=== PATIENT | male | born 1990 | race Native Hawaiian/Other Pacific Islander ===

== ENCOUNTER → 2021-06-18 | Outpatient (CLI) | payer OTHER ==
--- NOTE | 2021-06-18 13:55 | XR ---
EXAMINATION TYPE: XR lumbar spine 2 or 3V DATE OF EXAM: 06/18/2021 COMPARISON: None HISTORY: Low back pain TECHNIQUE: 3 view lumbar spine FINDINGS: Posterior disc space narrowing is present at L5-S1. Remaining disc heights are preserved. V ertebral body heights are preserved. Alignment is normal. IMPRESSION: 1. Posterior disc space narrowing L5-S1
== END | disposition home or self-care (01) ==
LOC: RADXRMAIN 12:03
PROVIDERS: ATTEND Emergency Medicine
DX: M51.36 Other intervertebral disc degeneration, lumbar region (principal)
CPT/HCPCS: 72100

== ENCOUNTER → 2021-06-20 | Outpatient (CLI) | payer OTHER ==
--- NOTE | 2021-06-20 15:13 | XR ---
EXAMINATION TYPE: XR chest 2V DATE OF EXAM: 06/20/2021 COMPARISON: None INDICATION: Fall, pain TECHNIQUE: Single frontal view of the chest is obtained. FINDINGS: The heart size is normal. The pulmonary vasculature is normal. The lungs are clear. No pneumothorax is evident. No displaced rib fractures are evident. IMPRESSION: 1. No acute pulmonary process.
--- NOTE | 2021-06-20 15:30 | XR ---
EXAMINATION TYPE: XR ribs LT DATE OF EXAM: 06/20/2021 COMPARISON: None HISTORY: Fall, pain TECHNIQUE: 2 view right ribs FINDINGS: No acute fractures are evident. No pneumothorax is evident. Nuclear medicine bone scan can be performed if additional evaluation is required. IMPRESSION: 1. No acute fracture evident.
--- NOTE | 2021-06-20 15:32 | XR ---
EXAMINATION TYPE: XR thoracic spine complete DATE OF EXAM: 06/20/2021 COMPARISON: None HISTORY: Fall pain TECHNIQUE: 3 view thoracic spine FINDINGS: There are 12 thoracic type vertebral bodies. Pedicles are intact. Disc heights are preserve d. Vertebral body heights are preserved. Some subtle scoliosis within the midthoracic spine. This can be positional or related to muscle spasm. Vertebral body alignment in the sagittal plane appears nor mal. IMPRESSION: 1. Minimal subtle scoliosis can be related to muscle spasm or patient positioning.
== END | disposition home or self-care (01) ==
LOC: RADXRMAIN 14:14
PROVIDERS: ATTEND Emergency Medicine
DX: S29.012D Strain of muscle and tendon of back wall of thorax, subsequent encounter (principal); M62.838 Other muscle spasm; M41.84 Other forms of scoliosis, thoracic region; W19.XXXD Unspecified fall, subsequent encounter
CPT/HCPCS: 71046; 72072

== ENCOUNTER → 2023-09-03 | Outpatient (CLI) | payer SELFPAY ==
--- NOTE | 2023-09-03 15:00 | US ---
EXAMINATION TYPE: US pelvic limited DATE OF EXAM: 09/03/2023 COMPARISON: NONE CLINICAL INDICATION: Male, 32 years old with history of N50.811 RT TESTICULAR PAIN,R10.2; Pelvic pain . blood in ejaculation TECHNIQUE: FINDINGS: bladder appears unremarkable. prostate appears slightly prominent = 4.2cm. hypoechoic area adjacent to prostate ?etiology IMPRESSION: 1. Bladder demonstrates no abnormality. Prostate is enlarged. There is a small hypoechoic area adjace nt to the prostate of uncertain etiology. Would recommend follow-up pelvic ultrasound.
--- NOTE | 2023-09-03 15:08 | US ---
EXAMINATION TYPE: US scrotum with doppler. Grayscale and color Doppler Duplex imaging performed of t erik scrotum. DATE OF EXAM: 09/03/2023 COMPARISON: NONE CLINICAL INDICATION: Male, 32 years old with history of N50.811 RT TESTICULAR PAIN,R10.2 PELVIC AND P ERINEAL PAIN; Testicle pain. Blood in ejaculation EXAM MEASUREMENTS: TESTICLES: Right Testicle: 5.1 x 2.1 x 3.7 cm Left Testicle: 4.2 x 1.9 x 3.3 cm EPIDIDYMIS HEAD: Right Epididymis: 1.4 cm Left Epididymis: 1.2 cm Doppler performed to assess for testicular vascularity; good bilateral color flow and waveforms are s een. There is no evidence of testicular torsion. Presence of hydroceles: small fluid collection lateral to right testicle = 2.0cm Presence of varicoceles: no cystic lesion right epididymis = 0.8 x 0.6 x 0.7cm dense echogenic focus right testicle = 0.2cm IMPRESSION: 1. Small right hydrocele. 2. There is a calcification within the right testicle possibly as a sequela of prior infection. 3. Small right subcentimeter epididymal head cyst.
== END | disposition home or self-care (01) ==
LOC: RADUSWWP 13:59
PROVIDERS: ATTEND Family Medicine
DX: N50.811 Right testicular pain (principal); N43.3 Hydrocele, unspecified; N50.3 Cyst of epididymis
CPT/HCPCS: 76857; 76870; 93975

== ENCOUNTER → 2023-12-08 | Outpatient (CLI) | payer BC ==
--- NOTE | 2023-12-08 12:43 | MR ---
EXAMINATION TYPE: MR Prostate wo/w con DATE OF EXAM: 12/08/2023 7:15 AM COMPARISON: Ultrasound 09/03/2023 CLINICAL INDICATION:Male, 33 years old with history of N40.2 Prostate Nodule; Pelvic and right testic ular pain, abnormal US TECHNIQUE: Multi-planar, multi-sequence imaging of the pelvis is performed prior to and following the uncomplicated administration of bolus intravenous gadolinium. CONTRAST: 8 Gadavist Interpretive Criteria: PI-RADS v2.1 SERUM PSA: 0.77 on 12/01/2023. SURGICAL PATHOLOGY: No data available. FINDINGS: Prostatic dimensions: 4.7 x 4.3 x 4.0 cm. "Bullet" Volume:52.91 (PSA density=0.01 ng/mL/mL) CENTRAL GLAND (Central and Transition Zones/CZ+TZ): Multiple bilateral, heterogenous appearing hypertrophic stromal nodules, without suspicious lesion. M edian lobe hypertrophy with protrusion into the base of the bladder. (PI-RADS 2) PERIPHERAL ZONE (PZ): No evidence of masslike abnormality, or localized perfusional hypervascularity, to further suggest a focus of clinically significant prostate cancer. (PI-RADS 2) SEMINAL VESICLES (SV): Symmetric and unremarkable. PERIPROSTATIC TISSUES: Unremarkable. LYMPH NODES: No enlarged pelvic lymph node. REMAINING PELVIS: Bladder wall is within normal limits given distention. No abnormal free or organized intrapelvic fluid collection. No pathologic bowel dilation or mural thickening. Colonic diverticula are present. No hernia visualized No mass to correlate with ultrasound imaging finding. OSSEOUS STRUCTURES: No suspicious osseous abnormality. IMPRESSION: 1. No suspicious mass or correlate for ultrasound finding. Finding could represent interdigitating fa t. 2. No specific features for high-risk prostate cancer. Maximum PI-RADS score: 2. 3. Moderate BPH, estimated gland volume 52.91 mL.
== END | disposition home or self-care (01) ==
LOC: RADMRIMAIN 06:18
PROVIDERS: ATTEND Urology
DX: N40.0 Benign prostatic hyperplasia without lower urinary tract symptoms (principal); N40.2 Nodular prostate without lower urinary tract symptoms; N50.811 Right testicular pain
CPT/HCPCS: 72197; A9585